=== PATIENT | female | born 1975 | race Caucasian/White ===

== ENCOUNTER 2019-12-20 17:49 | Emergency (ER) | payer OTHER ==
[~2019-12-20] VITALS: Ht 157.5 cm; Wt 102.3 kg
[2019-12-20 18:07] VITALS: Ht 157.5 cm; Wt 102.3 kg
[2019-12-20] MEDS ORDERED: TOPAMAX50 MG PO (18:09)
[2019-12-20] MEDS ORDERED: ATIVAN1 MG PO (18:09)
[2019-12-20] MEDS ORDERED: ELAVIL75 MG PO (18:10)
[2019-12-20 19:01] LABS: BASOPHILS 0.6 % (0-2); EOSINOPHILS 0.9 % (0-7); HEMOGLOBIN 14.2 g/dL (12-16); MCH 29.6 pg (26.0-34.0); MCV 89.6 fL (80.0-100.0); MEAN PLATELET VOLUME 10.9 fL (7.4-10.4); MONOCYTES 8.8 % (2-11); NEUTROPHILS 61.7 % (40-80); PLATELET COUNT 217 10x3/uL (130-400); RDW 13.1 % (11.5-14.5)
[2019-12-20 19:11] LABS: APTT 28.9 SECONDS (22.8-39.4); INR 0.98 (0.85-1.17); PROTIME 12.9 SECONDS (11.6-15.0)
[2019-12-20 19:12] LABS: D-DIMER-QUANTITATIVE < 0.27 ug/mLFEU (0.20-0.54)
[2019-12-20 19:20] LABS: CALC OSMOLALITY 278 mosm/kg (275-300); CALCIUM 9.4 mg/dL (8.5-10.1); CARBON DIOXIDE 26.1 mmol/L (21.0-32.0); CHLORIDE - SERUM 105 mmol/L (98-107); CREATININE - SERUM 0.8 mg/dL (0.6-1.3); GLUCOSE 102 mg/dL (74-106); POTASSIUM - SERUM 4.1 mmol/L (3.5-5.1); SODIUM 139 mmol/L (136-145); UREA NITROGEN 16 mg/dL (7-18); eGFR NON AFRICAN AMERICAN 82 mL/min (90-120)
[2019-12-20 19:27] LABS: ALBUMIN 3.1 g/dL (3.4-5.0); ALKALINE PHOSPHATASE 45 U/L (30-120); ALT (SGPT) 95 U/L (10-68); BILIRUBIN - TOTAL 0.31 mg/dL (0.2-1.3); CKMB 0.3 U/L (0.0-3.6); CREATINE KINASE 40 UL (21-215); PRO BNP 58 pg/mL (0-125); PROTEIN - SERUM 6.9 g/dL (6.4-8.2); TROPONIN-I 0.022 ng/mL (0.000-0.060)
[2019-12-20] MEDS ORDERED: VENTOLIN HFA [SP8 GM INH (19:33)
[2019-12-20 19:42] VITALS: BP 122/79
== END 2019-12-20 19:42 | disposition home or self-care (01) ==
LOC: D.ER 17:49
PROVIDERS: Family Medicine
DX: R05 Cough (principal); R06.02 Shortness of breath; R53.1 Weakness